=== PATIENT | male | born 1960 | race Caucasian/White ===

== ENCOUNTER 2022-07-29 09:33 | Outpatient (CLI) | payer BC, SELFPAY ==
[2022-07-29 13:53] LABS: Albumin* 4.3 g/dL (3.3-5.0); Chloride* 106 mmol/L (96-114); Sodium* 139 mmol/L (135-149)
[2022-07-29 13:54] LABS: Potassium* 4.8 mmol/L (3.6-5.1)
[2022-07-29 13:55] LABS: Cholesterol* 279 mg/dL (90-199)
[2022-07-29 13:56] LABS: Alanine Aminotransferase* 32 U/L (4-50); Alkaline Phosphatase* 76 U/L (40-150); Aspartate Amino Transferase* 26 U/L (12-35); Bilirubin Total* 0.7 mg/dL (0.1-1.5); Blood Urea Nitrogen* 11 mg/dL (7-30); Carbon Dioxide* 27 mmol/L (20-32); Creatinine* 0.8 mg/dL (0.5-1.5); Estimated Glomerular Filt Rate 102 ml/min; Glucose* 108 mg/dL (60-115); Total Protein* 7.2 g/dL (6.0-8.3)
[2022-07-29 13:57] LABS: Calcium* 9.8 mg/dL (8.4-10.6); HDL Cholesterol* 72 mg/dL (>=40); LDL Cholesterol Calculated 164 mg/dL (<100); Triglycerides* 213 mg/dL (40-149); Uric Acid* 6.2 mg/dL (2.2-8.4)
[2022-07-29 13:59] LABS: C Reactive Protein* 0.9 mg/dL (0.5-1.0)
[2022-07-29 14:28] LABS: PSA Screen* 1.55 ng/mL (0.10-4.00)
[2022-07-29 14:44] LABS: Erythrocyte SedimentationRate* 2 mm/hr (2-15)
== END 2022-07-29 09:34 | disposition home or self-care (01) ==
PROVIDERS: PCP Nurse Practitioner Family; Visit Provider Nurse Practitioner Family
DX: I10 Essential (primary) hypertension (principal); M79.671 Pain in right foot; Z12.5 Encounter for screening for malignant neoplasm of prostate; Z13.1 Encounter for screening for diabetes mellitus
CPT/HCPCS: 80053; 80061; 84153; 84550; 85651; 86140

== ENCOUNTER 2023-11-03 08:43 | Outpatient (CLI) | payer BC, SELFPAY | END 2023-11-03 08:44 | disposition home or self-care (01) | PROVIDERS: PCP Nurse Practitioner Family; Visit Provider Nurse Practitioner Family | DX: Z01.818 Encounter for other preprocedural examination (principal); E78.5 Hyperlipidemia, unspecified; I10 Essential (primary) hypertension; Z13.0 Encounter for screening for diseases of the blood and blood-forming organs and certain disorders involving the immune mechanism; Z12.5 Encounter for screening for malignant neoplasm of prostate | CPT/HCPCS: 80053; 80061; 85025; G0103 ==

== ENCOUNTER 2023-11-04 10:25 | Outpatient (CLI) | payer BC, SELFPAY ==
--- NOTE | 2023-11-04 11:19 | W.ANESCHARGE ---
Anesthesia Charges Start Date/Time Anesthesia Start Date: 11/04/23 Anesthesia Start Time: 10:59 Stop Date/Time Anesthesia Stop Date: 11/04/23 Anesthesia Stop Time: 11:54
--- NOTE | 2023-11-04 11:56 | W.ANESCHARGE ---
Anesthesia Charges Start Date/Time Anesthesia Start Date: 11/04/23 Anesthesia Start Time: 10:59 Stop Date/Time Anesthesia Stop Date: 11/04/23 Anesthesia Stop Time: 11:54
== END 2023-11-04 10:26 | disposition home or self-care (01) ==
LOC: OP CLINIC 10:26
PROVIDERS: PCP Nurse Practitioner Family; Visit Provider Surgery
DX: Z12.11 Encounter for screening for malignant neoplasm of colon (principal); K63.5 Polyp of colon; K62.1 Rectal polyp; Z86.010 Personal history of colon polyps
CPT/HCPCS: 00811; 45385; 88305; J2704

== ENCOUNTER 2024-01-08 09:53 | Emergency (ER) | payer BC, SELFPAY ==
[2024-01-08 10:03] VITALS: BP 176/103; PULSE 71; RESP 18; TEMP 36.6; O2SAT 97; BMI 31.7
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
--- NOTE | 2024-01-08 10:36 | CRLHL7_ITS ---
For Patients: As a result of the Century Cures Act, medical imaging exams and procedure reports are released immediately into your electronic medical record. You may view this report before your referring provider. If you have questions, please contact your health care provider. INDICATION: Left upper quadrant/left lower rib pain. TECHNIQUE: CT abdomen and pelvis acquired with 100 cc Isovue 370 IV contrast. COMPARISON: None. FINDINGS: Lower chest: Please refer to same-day CT chest for further evaluation. Liver: Mildly decreased hepatic attenuation, possibly steatosis. No suspicious masses. Gallbladder and bile ducts: Unremarkable. No stones or inflammation. No biliary dilatation. Pancreas: Unremarkable. No mass or inflammation. Spleen: Unremarkable. Normal in size. No masses. Adrenal glands: Unremarkable. No nodules. Kidneys: Unremarkable. No suspicious masses, stones, or hydronephrosis. GI tract: Small to moderate hiatal hernia. Moderate colonic stool burden. Colonic diverticulosis. Normal in caliber. No sign of mass or inflammation. Normal appendix. Vasculature: Aortoiliac arterial calcifications. Abdominal aorta is normal in caliber. Mesenteric arteries are patent. Lymph nodes: No lymphadenopathy. Peritoneum/Abdominal Wall: Tiny fat containing umbilical hernia. No sign of mass or infiltration. No free air or significant free fluid. Pelvis: Mildly distended bladder with circumferential wall thickening. Recommend correlation with urinalysis for UTI suspected. Bones: Unremarkable for age. IMPRESSION: No acute intra-abdominal/pelvic abnormality. Moderate colonic stool burden. Colonic diverticulosis without diverticulitis. Please note that all CT scans at this facility use dose modulation, iterative reconstruction, and/or weight-based dosing when appropriate to reduce radiation dose to as low as reasonably achievable. Dictated by Pavel Reynolds MD @ 01/08/2024 12:18:39 PM (Electronically Signed)
--- NOTE | 2024-01-08 10:36 | CRLHL7_ITS ---
For Patients: As a result of the Century Cures Act, medical imaging exams and procedure reports are released immediately into your electronic medical record. You may view this report before your referring provider. If you have questions, please contact your health care provider. INDICATION: Recent trauma, lower lung pain. COMPARISON: Chest radiograph 05/02/2019 TECHNIQUE: CT angiogram chest with contrast, pulmonary embolism protocol. Multiplanar axial, coronal, and sagittal reformats are included. MIP images to improve detection of pulmonary emboli are included. Intravenous contrast: 95 mL Isovue 370. FINDINGS: PE: Well-timed contrast bolus. No pulmonary emboli. Normal caliber main pulmonary artery. Mildly dilated right heart chambers. No reflux of contrast below the diaphragm. Airway: Expiratory appearance of the trachea. Small amount of debris along the right side of the distal trachea. No endobronchial impaction. Lungs: Expiratory appearance of the lungs with basilar atelectasis. Bandlike atelectasis in the lingula. Small nodules could be obscured due to low volumes and expiratory appearance of the lungs. No large nodule or discrete nodule seen today. No consolidations. No pulmonary edema or significant emphysema. Pleura: Trace bilateral pleural effusions. Effusions are layering posteriorly and dependently without findings of significant loculation. No pneumothorax. Lymph nodes: No thoracic adenopathy. Mediastinum: No pneumomediastinum. Small sliding-type hiatal hernia. Heart and great vessels: No pericardial effusion. Mildly dilated cardiac chambers. Moderate scattered atherosclerotic plaques. No aortic aneurysm. Chest wall: Swelling around the broken costal cartilages. No large chest wall hematoma. Upper abdomen: Normal. Bones: Mild buckling of the anterolateral right 3rd rib. See series 4, image 74. No cortical disruption. There is some mild irregularity in the 4th rib and a similar level, also without cortical disruption. Broken left 1st through 3rd left costal cartilages. The 4th left costal cartilage appears to be intact. The 5th through 7th costal cartilages are broken and significantly displaced with adjacent soft tissue swelling. The right 1st and 2nd costal cartilages are broken and mildly displaced. The right 8th costal cartilage is broken. No focal bone lesions. IMPRESSION: 1. No pulmonary embolism. 2. Multiple bilateral broken and displaced anterior costal cartilages with details above. The left 5th through 7th costal cartilage fractures are fairly significantly displaced. 3. Small bilateral pleural effusions. Please note that all CT scans at this facility use dose modulation, iterative reconstruction, and/or weight-based dosing when appropriate to reduce radiation dose to as low as reasonably achievable. Dictated by Yee Quesada MD @ 01/08/2024 12:21:55 PM (Electronically Signed)
[2024-01-08] MEDS: ACETAMINOPHEN 500 MG TABLET 1000 MG PO (11:10)
[2024-01-08 11:11] LABS: Creatinine, Point-of-Care* 0.9 mg/dl (0.6-1.3)
[2024-01-08 11:14] LABS: Basophils Absolute Auto 0.04 K/uL (0.00-0.30); Basophils Percent Auto 0.5 % (0.0-3.0); Eosinophils Absolute Auto 0.43 K/uL (0.00-0.50); Eosinophils Percent Auto 5.3 % (0.0-7.0); Hematocrit 43.1 % (37.0-53.0); Hemoglobin* 14.5 gm/dL (13.5-17.5); Immature Granulocytes Abs Auto 0.12 K/uL (0.00-0.30); Immature Granulocytes Pct Auto 1.5 %; Lymphocytes Percent Auto 18.8 % (20-44); Mean Corpuscular HGB Conc 34 gm/dL (32-36); Mean Corpuscular Hemoglobin 31 pg (26-34); Mean Corpuscular Volume 91 fL (80-100); Monocytes Percent Auto 9.3 % (0.0-11.0); Neutrophils Absolute Auto 5.28 K/uL (1.7-7.0); Neutrophils Percent Auto 64.6 % (42.0-72.0); Platelet Count* 307 K/uL (140-440); RDW Coefficient of Variation % 12.7 % (11.5-15.5); Red Blood Count 4.75 m/uL (4.30-5.90); White Blood Count* 8.17 K/uL (4.50-11.00)
[2024-01-08 11:23] LABS: Appearance Urine Clear (Clear); Bilirubin Urine Negative (Negative); Blood Urine Negative (Negative); Color Urine Yellow (Yellow); Glucose Urine Negative (Negative); Ketones Urine Negative (Negative); Leukocyte Esterase Urine Negative (Negative); Nitrite Urine Negative (Negative); Protein Urine Negative (Negative); Specific Gravity Urine 1.015 (1.000-1.030); Urobilinogen Urine 0.2 (0.2-1.0)
[2024-01-08 11:35] LABS: Albumin* 4.5 g/dL (3.3-5.0); Chloride* 105 mmol/L (96-114); Sodium* 139 mmol/L (135-149)
[2024-01-08 11:36] LABS: Potassium* 4.6 mmol/L (3.6-5.1)
[2024-01-08 11:37] LABS: RBC Urine 0-2 (0-2); WBC Urine 0-2 (0-5)
[2024-01-08 11:38] LABS: Aspartate Amino Transferase* 38 U/L (12-35); Bilirubin Total* 0.4 mg/dL (0.1-1.5); Carbon Dioxide* 26 mmol/L (20-32); Creatinine* 0.8 mg/dL (0.5-1.5); Est. Creatinine Clearance* 77.57; Estimated Glomerular Filt Rate 101 ml/min; Total Protein* 7.5 g/dL (6.0-8.3)
[2024-01-08 11:39] LABS: Alanine Aminotransferase* 60 U/L (4-50); Alkaline Phosphatase* 108 U/L (40-150); Anion Gap 8 mEq/L (7-15); Blood Urea Nitrogen* 12 mg/dL (7-30); Calcium* 9.9 mg/dL (8.4-10.6); Glucose* 89 mg/dL (60-115); Lipase* 54 U/L (23-300)
[2024-01-08 11:45] LABS: Slide Review Reflex No
[2024-01-08 12:09] VITALS: BP 164/105; PULSE 63; RESP 16; O2SAT 96
[2024-01-08 14:48] VITALS: BP 150/98; PULSE 69; RESP 18; O2SAT 96
== END 2024-01-08 14:57 | disposition home or self-care (01) ==
PROVIDERS: Emergency Provider Emergency Medicine; PCP Nurse Practitioner Family
DX: R07.81 Pleurodynia (principal); R10.12 Left upper quadrant pain
CPT/HCPCS: 36415; 71275; 74177; 80053; 81001; 82565; 83690; 85025; 99283; 99284; 99285; A9270; Q9967

== ENCOUNTER 2024-05-20 14:39 | Outpatient (CLI) | payer BC, SELFPAY ==
--- NOTE | 2024-05-20 15:00 | CRLHL7_ITS ---
For Patients: As a result of the Century Cures Act, medical imaging exams and procedure reports are released immediately into your electronic medical record. You may view this report before your referring provider. If you have questions, please contact your health care provider. INDICATION: Left-sided testicular mass COMPARISON: none TECHNIQUE: Stevens scale imaging was performed of the scrotum. In addition color Doppler and spectral Doppler analysis was performed of the testes. FINDINGS: The testes demonstrate normal arterial and venous blood flow on color Doppler and spectral Doppler analysis. The testes have uniform echogenicity with no evidence of a suspicious mass or area of inflammation. The right testis measures 2.2 x 2.8 x 3.8 cm in size and the left testis measures 2.6 x 2.2 x 3.8 cm. Normal right epididymis. Solid and cystic lesion within the inferior epididymis at the epididymal tail measures 1.6 x 1.4 x 1.6 cm. Normal right epididymis. Small right hydrocele is present. IMPRESSION: Solid and cystic left epididymal tail lesion corresponding to the area of palpable concern measures 1.6 cm. No testicular lesion. 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 Urology referral should be considered. Dictated by Zhao Tubbs MD @ 05/20/2024 3:26:05 PM (Electronically Signed)
== END 2024-05-20 14:40 | disposition home or self-care (01) ==
LOC: US 14:40
PROVIDERS: PCP Nurse Practitioner Family; Visit Provider Nurse Practitioner Family
DX: N50.89 Other specified disorders of the male genital organs (principal)
CPT/HCPCS: 76870; 93976

== ENCOUNTER 2024-07-06 18:23 | Outpatient (CLI) | payer BC, SELFPAY | END 2024-07-06 18:24 | disposition home or self-care (01) | PROVIDERS: PCP Nurse Practitioner Family; Visit Provider Nurse Practitioner Family | DX: Z01.818 Encounter for other preprocedural examination (principal) | CPT/HCPCS: 80053; 85025 ==